=== PATIENT | male | born 2000 | race Two or more races ===

== ENCOUNTER 2019-05-02 01:56 | Emergency (ER) | payer OTHER ==
[2019-05-02] MEDS ORDERED: LIDOCAINE 1%/EPINEPHRINE INJ 20 ML VIAL INJ ONE (03:34)
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
[2019-05-02 04:51] VITALS: BP 128/78
== END 2019-05-02 04:44 | disposition home or self-care (01) ==
LOC: ER 01:56
DX: S61.412A Laceration without foreign body of left hand, initial encounter (principal); W25.XXXA Contact with sharp glass, initial encounter; Y93.89 Activity, other specified; F17.200 Nicotine dependence, unspecified, uncomplicated
CPT/HCPCS: 99282; 12001; J3490

== ENCOUNTER 2019-10-03 21:11 | Emergency (ER) | payer OTHER ==
[2019-10-03 21:23] VITALS: BP 131/80
[2019-10-03] MEDS ORDERED: AZITHROMYCIN 250 MG TABLET PO ONE (21:26)
[2019-10-03] MEDS ORDERED: LIDOCAINE 1% INJ-PF (10 MG/ML) 30 ML SDV IM ONE (21:26)
[2019-10-03] MEDS ORDERED: CEFTRIAXONE INJ 250 MG VIAL IM ONE (21:26)
--- NOTE | 2019-10-03 21:27 | ER Document Report ---
HPI - HPI Time Seen by Provider: 10/03/19 21:23 Pain Level: Denies Notes: Otherwise healthy 19-year-old male presenting to the emergency department concern for STD exposure. He reports that his tested positive for an STD. He is not sure which STD it was because he has not spoken with her. He has no symptoms himself today. Past Medical History - General Information source: Patient - Social History Smoking Status: Current Every Day Smoker Frequency of alcohol use: None Drug Abuse: None Family History: Reviewed & Not Pertinent Patient has homicidal ideation: No - Medical History Medical History: Negative Surgical Hx: Negative - Immunizations Immunizations up to date: Yes Hx Diphtheria, Pertussis, Tetanus Vaccination: Yes Vertical Provider Document - CONSTITUTIONAL Notes: PHYSICAL EXAMINATION: GENERAL: Well-appearing, well-nourished and in no acute distress. HEAD: Atraumatic, normocephalic. EYES: Pupils equal round extraocular movements intact, conjunctiva are normal. ENT: Nares patent NECK: Normal range of motion LUNGS: No respiratory distress Musculoskeletal: Normal range of motion NEUROLOGICAL: Normal speech, normal gait. PSYCH: Normal mood, normal affect. SKIN: Warm, Dry, normal turgor, no rashes or lesions noted. - INFECTION CONTROL TRAVEL OUTSIDE OF THE [place] IN LAST 30 DAYS: No Course - Re-evaluation Re-evalutation: Median gonorrhea testing was performed today. Results are pending. Patient given azithromycin and Rocephin. Patient verbalized understanding and agreement with discharge plan. - Vital Signs Vital signs: Temp Pulse Resp BP Pulse Ox 98.3 F 95 16 131/80 H 100 10/03/19 21:19 10/03/19 21:19 10/03/19 21:19 10/03/19 21:19 10/03/19 21:19 Discharge - Discharge Clinical Impression: STD exposure Condition: Stable Disposition: HOME, SELF-CARE Additional Instructions: You were seen in the emergency department with concern for STD exposure. We tested you today for chlamydia and gonorrhea, these tests will take several hours to come back. We have treated you for them in case they were positive. [place] or [place] health [place] for further panel of STD testing if you choose to do so. No sexual intercourse for at least the next 10 days.
[2019-10-03 23:41] LABS: CHLAM PCR NOT DETECTED (NOT DETECT)
== END 2019-10-03 22:20 | disposition home or self-care (01) ==
LOC: ER 21:11
DX: Z20.2 Contact with and (suspected) exposure to infections with a predominantly sexual mode of transmission (principal); F17.200 Nicotine dependence, unspecified, uncomplicated
CPT/HCPCS: 99283; 96372; 87491; 87591; J3490; J0696